=== PATIENT | female | born 1970 | race African-American/Black ===

== ENCOUNTER 2018-06-14 16:00 | Observation (INO) | payer MEDICAID, OTHER ==
[~2018-06-14] VITALS: Ht 167.6 cm; Wt 90.7 kg
[~2018-06-14 16:00] MED LIST: ASPI-1079 PO; FERROUS SULFATE; FLUT1DIS IH; HCTZ; HYDR12.54 PO; LISI-604 PO; PROTONIX
== END 2018-06-14 18:10 | disposition home or self-care (01) ==
LOC: 8 EST LDRP 16:00
PROVIDERS: ADMIT Obstetrics & Gynecology; ATTEND Obstetrics & Gynecology
DX: O26.893 Other specified pregnancy related conditions, third trimester (principal); R10.2 Pelvic and perineal pain; N89.8 Other specified noninflammatory disorders of vagina; Z3A.34 34 weeks gestation of pregnancy
CPT/HCPCS: G0378 ×2; 99281

== ENCOUNTER 2018-06-14 18:23 | Emergency (ER) | payer OTHER ==
[~2018-06-14] VITALS: Ht 165.1 cm; Wt 91.0 kg
[2018-06-14 20:51] VITALS: BP 144/87
== END 2018-06-14 22:18 | disposition left against medical advice (07) ==
LOC: ER 18:23
DX: N94.89 Other specified conditions associated with female genital organs and menstrual cycle (principal)
CPT/HCPCS: 99281